=== PATIENT | male | born 1970 | race Caucasian/White ===

== ENCOUNTER 2018-06-21 13:47 | Emergency (ER) | payer OTHER ==
[~2018-06-21] VITALS: Ht 177.8 cm; Wt 90.9 kg
[~2018-06-21 13:47] MED LIST: DAPSONE100 MG PO; DILAUDID2 MG PO; HYDROCODONE-APA1 TAB PO; PRILOSEC20 MG PO; ZESTORETIC 20-1 EACH PO
[2018-06-21 14:04] VITALS: Ht 177.8 cm; Wt 90.9 kg
[2018-06-21] MEDS ORDERED: ULTRAM50 MG PO (14:29)
[2018-06-21 15:22] VITALS: BP 124/80
== END 2018-06-21 14:51 | disposition home or self-care (01) ==
LOC: D.ER 13:47
DX: S69.92XA Unspecified injury of left wrist, hand and finger(s), initial encounter (principal); W11.XXXA Fall on and from ladder, initial encounter; Y93.89 Activity, other specified; Y92.019 Unspecified place in single-family (private) house as the place of occurrence of the external cause; I10 Essential (primary) hypertension; Z85.820 Personal history of malignant melanoma of skin

== ENCOUNTER → 2019-08-29 11:03 | Outpatient (CLI) | payer MEDICAID ==
[2018-06-21 14:04] VITALS: BMI 28.7
[~2019-08-29 11:03] MED LIST changes: +ULTRAM50 MG PO
== END | disposition home or self-care (01) ==
LOC: D.US 11:03
PROVIDERS: ATTEND Nurse Practitioner Family
DX: N50.819 Testicular pain, unspecified (principal)

== ENCOUNTER 2019-09-05 08:30 | Day surgery (SDC) | payer MEDICAID ==
[~2019-09-05] VITALS: Ht 175.3 cm; Wt 95.3 kg
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
[2019-09-05 09:32] LABS: BASOPHILS 0.4 % (0-2); EOSINOPHILS 1.8 % (0-7); HEMATOCRIT 55.3 % (42.0-54.0); HEMOGLOBIN 18.2 g/dL (13.5-17.5); IMMATURE GRANULOCYTES 0.7 % (0-5); LYMPHOCYTES 22.9 % (15-50); MCH 30.2 pg (26.0-34.0); MCHC 32.9 g/dL (31.0-37.0); MCV 91.7 fL (80.0-100.0); MEAN PLATELET VOLUME 9.8 fL (7.4-10.4); MONOCYTES 12.5 % (2-11); NEUTROPHILS 61.7 % (40-80); RBC 6.03 10x6/uL (4.20-6.10); RDW 14.4 % (11.5-14.5); WBC 8.2 10x3/uL (4.8-10.8)
--- NOTE | 2019-09-05 09:32 | NUR ---
5369 12 LEAD EKG SHOWS ATRIAL FLUTTER (HR 133) AND ST ELEVATION. PT DENIES CP OR CHEST TIGHTNESS. DENIES HAVING CARDIAC ISSUES IN THE PAST. STATES HE RESTARTED HIS B/P MEDICINE AFTER BEING WITHOUT HEALTH CARE FOR A WHILE. FAMILY HX OF HIS FATHER DYING OF ND AT AGE 53. [address] BASHIR EVALUATED EKG AND CONSULTED DR ALLISON TO EVALUATE PT.
[2019-09-05 09:33] LABS: PLATELET COUNT 315 10x3/uL (130-400)
[2019-09-05 09:34] VITALS: BP 128/68; Ht 175.3 cm; Wt 95.3 kg
[2019-09-05 09:37] LABS: ANION GAP 12.6 mmol/L (8-16); CALCIUM 8.7 mg/dL (8.5-10.1); CARBON DIOXIDE 26.4 mmol/L (21.0-32.0); CREATININE - SERUM 1.4 mg/dL (0.6-1.3)
[2019-09-05 09:41] LABS: INR 0.97 (0.85-1.17); PROTIME 12.8 SECONDS (11.6-15.0)
[2019-09-05 09:42] LABS: APTT 26.5 SECONDS (22.8-39.4)
--- NOTE | 2019-09-05 09:42 | NUR ---
3579 BEHAVIORAL HEALTH CONSULT CALLED TO JUNIE SILVA, NURSE CHRONOGRAPH OPERATOR.
--- NOTE | 2019-09-05 10:00 | NUR ---
According to the suicide assessement screen, the patient rates low for S.I. and he does not require a 1:1 observation. Provided him a suicide resource flyer.
--- NOTE | 2019-09-05 10:33 | NUR ---
1015 PT IS ANXIOUS AND WANTS TO GO HOME. DR ALLISON HERE TO SEE PT. SURGERY IS BEING CANCELLED BY PT. HE STATES HE DOESN'T WANT TO HAVE SURGERY TODAY. DR ALLISON WROTE A PRESCRIPTION FOR SOTALOL AND WANTS TO SEE PT IN HIS OFFICE ON SUNDAY. DR. ALLISON CALLED HIS OFFICE FOR PT TO BE SEEN BY HIS NURSE PRACTIONER, DAHLIA. 1025 IV DC'D. CATHETER TIP INTACT. NO BLEEDING AT SITE. BANDAID APPLIED. 1030 DR AMIN AND SURGERY AWARE THAT PT WANTS TO CANCEL HIS SURGERY. DR. AMIN WANTS TO SEE HIM IN 1-2 WEEKS. PT GIVEN DISCHARGE INSTRUCTIONS AND UNDERSTANDS THE IMPORTANCE OF GETTING STARTED ON THE SOTALOL AND STATES HE WILL FOLLOW-UP WITH CARDIOLOGY ON SUNDAY. PT CONTINUES TO DENY CP OR CHEST TIGHTNESS. NO SOB NOTED. PT IS VERY ANXIOUS AND WANTS TO GO HOME.
== END 2019-09-05 10:34 | disposition home or self-care (01) ==
LOC: D.OPS 08:30 → D.PAN 10:30 → D.OPS 10:30 → D.PAN 11:00
PROVIDERS: Anesthesiology; ATTEND Surgery
DX: K40.90 Unilateral inguinal hernia, without obstruction or gangrene, not specified as recurrent (principal); I48.91 Unspecified atrial fibrillation; Z82.49 Family history of ischemic heart disease and other diseases of the circulatory system; Z53.9 Procedure and treatment not carried out, unspecified reason

== ENCOUNTER → 2020-12-13 07:58 | Outpatient (CLI) | payer OTHER ==
[2020-09-23 05:58] VITALS: BMI 31.8
[~2020-12-13 07:58] MED LIST changes: +MEDROL DOSE PACK4 MG PO
== END | disposition home or self-care (01) ==
LOC: D.MRI 12-10 08:30
PROVIDERS: ATTEND Family Medicine
DX: M75.102 Unspecified rotator cuff tear or rupture of left shoulder, not specified as traumatic (principal)